=== PATIENT | male | born 1995 | race Two or more races ===

== ENCOUNTER 2024-10-19 20:05 | Emergency (ER) | payer OTHER ==
[2024-10-19 20:10] VITALS: BP 146/62; PULSE 80; RESP 17; TEMP 97.6; BMI 29.5
[2024-10-19] MEDS: SODIUM CHLORIDE 0.9% 500 ML INFUS.BAG IV ONE (21:08)
[2024-10-19 21:11] LABS: BASO % 0.6 % (0-2.0); EOS % 1.1 % (0-4.5); HEMATOCRIT 44.3 % (35.4-49); HEMOGLOBIN 14.6 GM/dL (11.7-16.9); LYMPH % 25.1 % (8-40); MCHC 32.9 g/dl (32.0-35.9); MEAN PLT VOLUME 7.9 fl (7.5-11.1); MONO % 6.1 % (3.8-10.2); NEUT % 67.1 % (42.8-82.8); PLATELET COUNT 253 10^3/uL (134-434); RBC 5.61 M/mm3 (4.00-5.60); RDW 13.4 % (11.9-15.9); WHITE BLOOD COUNT 8.3 K/mm3 (4.0-10.0)
[2024-10-19 21:36] LABS: POTASSIUM 4.2 mmol/L (3.5-5.1)
[2024-10-19 21:38] LABS: CALCIUM 9.1 mg/dL (8.5-10.1)
[2024-10-19 21:39] LABS: ALBUMIN 3.8 g/dl (3.4-5.0); BLOOD UREA NITROGEN 12.9 mg/dL (7-18)
[2024-10-19 21:44] LABS: BILIRUBIN,TOTAL 0.2 mg/dL (0.2-1); TOT PROT 7.3 g/dl (6.4-8.2)
[2024-10-20 00:44] LABS: COCAINE, UR NEGATIVE (NEGATIVE); METHADONE, UR NEGATIVE (NEGATIVE); OPIATES, URI NEGATIVE (NEGATIVE); PHENCYCLIDINE,URINE NEGATIVE (NEGATIVE)
[2024-10-20 00:46] LABS: URINE AMPHETAMINES NEGATIVE (NEGATIVE); URINE BARBITURATES NEGATIVE (NEGATIVE); URINE BENZODIAZEPINES NEGATIVE (NEGATIVE)
== END 2024-10-20 03:26 | disposition home or self-care (01) ==
LOC: JER 20:05
DX: R55 Syncope and collapse (principal); R42 Dizziness and giddiness; R05.9 Cough, unspecified; R41.0 Disorientation, unspecified; Z20.822 Contact with and (suspected) exposure to COVID-19
CPT/HCPCS: 0241U-QW; 36415; 70450-TC; 80053; 80307; 82550; 82553; 82962; 84484; 85025; 93005; 93010; 99285-25